=== PATIENT | male | born 1985 | race Two or more races ===

== ENCOUNTER 2017-02-26 01:22 | Emergency (ER) | payer BC ==
[~2017-02-26] VITALS: Ht 185.4 cm; Wt 70.3 kg
--- NOTE | 2017-02-26 02:00 | NUR ---
PT AMBULATORY TO ER BED 6. PT BIB SELF C/O COUGH, FEVER, AND OKEEFE X 5 DAYS. PT PLACED ON [employer]. VSS/RESP EVEN UNLABORED/NAD NOTED/SKIN WARM AND DRY/DENIES N-V-D/AOX4. AWAITING MD NOWAK.
--- NOTE | 2017-02-26 02:09 | NUR ---
AT BEDSIDE FOR EVAL.
[2017-02-26] MEDS ORDERED: ACETAMINOPHEN ES 500 MG TABLET ONE (02:18)
[2017-02-26] MEDS ORDERED: ACETAMINOPHEN ES 500 MG TABLET PO ONE (02:30)
--- NOTE | 2017-02-26 02:48 | NUR ---
MD AT BEDSIDE SPEAKING WITH PATIENT.
[2017-02-26] MEDS ORDERED: OSELTAMIVIR PHOSPHATE 75 MG CAPSULE ONE (02:59)
[2017-02-26] MEDS ORDERED: OSELTAMIVIR PHOSPHATE 75 MG CAPSULE PO ONE (03:00)
[2017-02-26 03:15] VITALS: BP 128/68
--- NOTE | 2017-02-26 03:15 | NUR ---
Patient discharged to home in stable condition. Written and verbal after care instructions given. Patient verbalizes understanding of instruction. Patient ambulatory with a steady gait.
== END 2017-02-26 03:16 | disposition home or self-care (01) ==
LOC: ER 01:30
DX: J10.1 Influenza due to other identified influenza virus with other respiratory manifestations (principal); M79.1 Myalgia
CPT/HCPCS: 87804 ×2; 99284; A4606; 87400; Z7610